=== PATIENT | male | born 1975 | race Caucasian/White ===

== ENCOUNTER 2018-01-16 23:15 | Emergency (ER) | payer OTHER ==
[~2018-01-16] VITALS: Ht 165.1 cm; Wt 53.0 kg
[~2018-01-16 23:15] MED LIST: AUGMENTIN875 MG PO; LORTAB 5-500 T1 EACH PO
[2018-01-16 23:39] VITALS: BP 125/86
[2018-01-17] MEDS ORDERED: VALIUM2 MG PO (00:23)
[2018-01-17] MEDS ORDERED: NAPROSYN500 MG PO (00:23)
== END 2018-01-17 00:41 | disposition home or self-care (01) ==
LOC: EME 23:15
DX: S16.1XXA Strain of muscle, fascia and tendon at neck level, initial encounter (principal); S39.012A Strain of muscle, fascia and tendon of lower back, initial encounter; W20.8XXA Other cause of strike by thrown, projected or falling object, initial encounter; Y99.0 Civilian activity done for income or pay; F17.200 Nicotine dependence, unspecified, uncomplicated
CPT/HCPCS: 99281; 99284